=== PATIENT | male | born 1975 | race Caucasian/White ===

== ENCOUNTER 2016-11-16 11:16 | Emergency (ER) | payer OTHER ==
[~2016-11-16] VITALS: Ht 205.7 cm; Wt 116.9 kg
[~2016-11-16 11:16] MED LIST: LOPRESSOR25 MG PO
[2016-11-16 13:00] LABS: BASOPHIL COUNT 0.1 K/uL (0-0.1); EOSINOPHIL (%) 1.1 % (0-5); EOSINOPHIL COUNT 0.1 K/uL (0-0.3); HEMATOCRIT 46.2 % (38.0-50.0); IMMATURE GRANULOCYTE (%) 0.5 % (0.0-0.7); IMMATURE GRANULOCYTE COUNT 0.1 K/uL; LYMPHOCYTE COUNT 1.7 K/uL (1.0-2.8); MCH 30.1 PG (29.0-34.0); MCHC 34.4 G/DL (30.0-36.0); MCV 87.3 FL (86-99); MEAN PLAT.VOLUME 11.9 uM^3 (9.0-12.4); MONOCYTE (%) 5.7 % (3-12); MONOCYTE COUNT 0.6 K/uL (0-0.8); NEUTROPHIL (%) 75.6 % (45-76); PLATELET COUNT 225 K/uL (156-360); RBC DIS.WIDTH-CV 12.1 % (11.8-14.6); RBC DIS.WIDTH-SD 38.7 % (39-53); RED BLOOD COUNT 5.29 M/uL (4.00-5.50); WHITE BLOOD COUNT 10.6 K/uL (4.1-10.2)
[2016-11-16 13:10] LABS: CHLORIDE 106 mEq/L (99-109); POTASSIUM 4.3 mEq/L (3.7-5.4); SODIUM 139 mEq/L (136-147)
[2016-11-16 13:11] LABS: GLUCOSE 96 mg/dL (70-99)
[2016-11-16 13:13] LABS: ANION GAP 8 MEQ/L (2-14)
[2016-11-16 13:15] LABS: GFR ESTIMATE (CALCULATED) > 59 mL/min/; TROP-I INTERPRETATION NEGATIVE; TROPONIN-I < 0.01 ng/mL (0.0-0.30)
[2016-11-16 13:16] LABS: UREA NITROGEN (BUN) 15 mg/dL (9-23)
[2016-11-16 14:21] VITALS: BP 126/79
== END 2016-11-16 14:25 | disposition left against medical advice (07) ==
LOC: EME 11:16
PROVIDERS: Emergency Medicine
DX: R07.89 Other chest pain (principal); R00.2 Palpitations; R42 Dizziness and giddiness; Z53.29 Procedure and treatment not carried out because of patient's decision for other reasons; Z87.891 Personal history of nicotine dependence
CPT/HCPCS: 71010; 80048; 84484; 85025; 93005; 99281; 99284

== ENCOUNTER 2017-05-08 16:12 | Inpatient (IN) | payer OTHER ==
[~2017-05-08] VITALS: Ht 205.7 cm; Wt 112.4 kg
[2017-05-08 16:57] LABS: HEMATOCRIT 42.9 % (38.0-50.0); HEMOGLOBIN 15.3 G/DL (12.5-16.6); MCHC 35.7 G/DL (30.0-36.0); RBC DIS.WIDTH-SD 38.4 % (39-53); RED BLOOD COUNT 4.93 M/uL (4.00-5.50); WHITE BLOOD COUNT 9.3 K/uL (4.1-10.2)
[2017-05-08 17:06] LABS: ALBUMIN 3.9 g/dL (3.2-4.8); CHLORIDE 107 mEq/L (99-109); POTASSIUM 3.5 mEq/L (3.7-5.4); SODIUM 138 mEq/L (136-147)
[2017-05-08 17:08] LABS: GLUCOSE 101 mg/dL (70-99); TOTAL PROTEIN 6.5 g/dL (6.4-8.3)
[2017-05-08 17:10] LABS: TOTAL BILIRUBIN 0.7 mg/dL (0.0-1.0)
[2017-05-08 17:12] LABS: ALKALINE PHOSPHATASE 70 IU/L (3-129); GFR ESTIMATE (CALCULATED) > 59 mL/min/ (58.99-99999)
[2017-05-08 17:13] LABS: UREA NITROGEN (BUN) 14 mg/dL (9-23)
[2017-05-08 17:14] LABS: AST (GOT) 25 IU/L (2-34)
[2017-05-08 17:15] LABS: ALT (GPT) 38 IU/L (3-49)
[2017-05-08 17:18] LABS: TROP-I INTERPRETATION NEGATIVE; TROPONIN-I < 0.01 ng/mL (0.0-0.30)
[2017-05-08 17:35] LABS: PLAT.SUFFICIENCY ADEQUATE; PLATELET COUNT 216 K/uL (156-360)
[2017-05-08] MEDS ORDERED: METOPROLOL SUCC50 MG PO (20:44)
[2017-05-08 20:45] LABS: THYROTROPIN (TSH) 1.3 MIU/L (0.4-5.5)
[2017-05-08] MEDS ORDERED: TESTOSTERO200 MG/12 IM (20:46)
[2017-05-08] MEDS ORDERED: ONE DAILY FOR1 EACH PO (20:47)
[2017-05-09 03:48] LABS: HEMOGLOBIN 13.7 G/DL (12.5-16.6); MCHC 35.1 G/DL (30.0-36.0); MCV 88.2 FL (86-99); PLATELET COUNT 193 K/uL (156-360); RBC DIS.WIDTH-CV 12.2 % (11.8-14.6); RBC DIS.WIDTH-SD 39.3 % (39-53); RED BLOOD COUNT 4.42 M/uL (4.00-5.50); WHITE BLOOD COUNT 9.8 K/uL (4.1-10.2)
[2017-05-09 04:10] LABS: TROP-I INTERPRETATION NEGATIVE; TROPONIN-I 0.01 ng/mL (0.0-0.30)
[2017-05-09 04:51] LABS: ALBUMIN 3.3 G/DL (3.2-4.8); ALKALINE PHOSPHATASE 52 IU/L (3-129); ALT (GPT) 25 IU/L (3-49); AST (GOT) 18 IU/L (2-34); CHLORIDE 112 MEQ/L (99-109); GFR ESTIMATE (CALCULATED) > 59 mL/min/ (58.99-99999); GLUCOSE 104 mg/dL (70-99); POTASSIUM 3.9 MEQ/L (3.7-5.4); SODIUM 139 MEQ/L (136-147); TOTAL BILIRUBIN 0.5 MG/DL (0.0-1.0); TOTAL PROTEIN 5.8 G/DL (6.4-8.3); UREA NITROGEN (BUN) 13 mg/dL (9-23)
[2017-05-09 11:51] LABS: TROP-I INTERPRETATION NEGATIVE; TROPONIN-I < 0.01 ng/mL (0.0-0.30)
[2017-05-09] MEDS ORDERED: XARELTO20 MG PO (12:26)
[2017-05-09 13:25] VITALS: BP 117/63
== END 2017-05-09 13:30 | disposition home or self-care (01) | DRG 310 ==
LOC: EME 16:12 → EDOF 20:39 → ENRESERV 20:42 → EDOF 05-09 13:30 → ENRESERV 05-09 14:14
PROVIDERS: Emergency Medicine; Family Medicine
DX: I48.0 Paroxysmal atrial fibrillation (principal); I95.1 Orthostatic hypotension; E87.6 Hypokalemia; R86.1 Abnormal level of hormones in specimens from male genital organs; I49.8 Other specified cardiac arrhythmias; Z87.891 Personal history of nicotine dependence
CPT/HCPCS: 71045; 80053; 83735; 84439; 84443; 84484; 85027; 93005; 99281; 99285; J7030